=== PATIENT | male | born 1960 | race Two or more races ===

== ENCOUNTER 2017-06-02 10:10 | Emergency (ER) | payer BC, OTHER ==
--- NOTE | 2017-06-02 11:44 | EDM.PDOC ---
ED HPI GENERAL MEDICAL PROBLEM - General Chief Complaint: Chest Pain Stated Complaint: CHEST PAIN Time Seen by Provider: 06/02/17 10:38 Source of Information: Reports: Patient, RN Notes Reviewed History Limitations: Reports: No Limitations - History of Present Illness INITIAL COMMENTS - FREE TEXT/NARRATIVE: The patient states that he developed retrosternal chest pain this past Saturday night, 05/31/2017. It is a tightness in character. It is a pain, not a discomfort. It has been coming and going, with exertion, but made worse if he sits. It does not radiate. He has associated dyspnea, but no nausea, diaphoresis , or sense of impending doom. He is asymptomatic at this time, although reports that he had the pain while he was getting the ECG here in the ED. He has not tried any treatments or home remedies. No prior similar symptoms. The patient's PCP is Dr. Luis Muñoz. He states that his last general physical exam was about 2 years ago. He has not previously undergone a cardiac stress test. Chest Pain Score (Numeric/FACES): 5 - Related Data Allergies Allergy/AdvReac Type Severity Reaction Status Date / Time No Known Allergies Allergy Verified 06/02/17 10:17 Home Meds: Home Meds . [No Known Home Meds] 06/02/17 [History] Past Medical History Endocrine/Metabolic History: Reports: Obesity/BMI 30+ - Past Surgical History HEENT Surgical History: Reports: LASIK (bilateral), Oral Surgery (Dental implants) GI Surgical History: Reports: Colonoscopy Musculoskeletal Surgical History: Reports: Shoulder Surgery (bilateral arthroscopic rotator cuff repair) Social & Family History - Tobacco Use Smoking Status *Q: Former Smoker Years of Tobacco use: 26 Packs/Tins Daily: 0.2 Month Tobacco Last Used: Quit October 2016 - Alcohol Use Alcohol Use History: Yes Alcohol Use Frequency: Socially - Recreational Drug Use Recreational Drug Use: No - Living Situation & Occupation Living situation: Reports: , with Spouse 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) ED ROS GENERAL - Review of Systems Review Of Systems: See Below Constitutional: Reports: No Symptoms HEENT: Reports: No Symptoms Respiratory: Reports: No Symptoms Cardiovascular: Reports: No Symptoms Endocrine: Reports: No Symptoms GI/Abdominal: Reports: No Symptoms : Reports: No Symptoms Musculoskeletal: Reports: No Symptoms Skin: Reports: No Symptoms Neurological: Reports: No Symptoms Psychiatric: Reports: No Symptoms Hematologic/Lymphatic: Reports: No Symptoms Immunologic: Reports: No Symptoms ED EXAM, GENERAL - Physical Exam Exam: See Below Exam Limited By: No Limitations General Appearance: Alert, WD/WN, No Apparent Distress Eye Exam: Bilateral Eye: Normal Inspection Ears: Normal External Exam, Hearing Grossly Normal Nose: Normal Inspection, No Blood Throat/Mouth: Normal Inspection, Normal Lips, Normal Voice, No Airway Compromise Head: Atraumatic, Normocephalic Neck: Normal Inspection, Full Range of Motion Respiratory/Chest: No Respiratory Distress, Lungs Clear, Normal Breath Sounds, No Accessory Muscle Use, Chest Non-Tender Cardiovascular: Normal Peripheral Pulses, Regular Rate, Rhythm, No Gallop, No JVD, No Murmur, No Rub Peripheral Pulses: 4+: Radial (L), Radial (R) GI/Abdominal: Normal Bowel Sounds, Soft, Non-Tender, No Organomegaly, No Distention, No Abnormal Bruit, No Mass, Other (Obese) (Male) Exam: Deferred Rectal (Males) Exam: Deferred Back Exam: Normal Inspection, Full Range of Motion. No: CVA Tenderness (L), CVA Tenderness (R) Extremities: Normal Inspection, Normal Range of Motion, No Pedal Edema, Normal Capillary Refill Neurological: Alert, Oriented, Normal Cognition, No Motor/Sensory Deficits Psychiatric: Normal Affect Skin Exam: Warm, Dry, Intact, Normal Color, No Rash EKG INTERPRETATION EKG Date: 06/02/17 Time: 10:19 Rhythm: NSR Rate (Beats/Min): 70 Maynard: LAD-Left Maynard Deviation P-Wave: Present QRS: Normal ST-T: Normal QT: Normal Comparison: NA - No Prior EKG Course - Vital Signs Last Recorded V/S: Last Vital Signs Temp 36.4 C 06/02/17 10:17 Pulse 71 06/02/17 10:17 Resp 16 06/02/17 12:25 BP 131/96 H 06/02/17 12:25 Pulse Ox 94 L 06/02/17 12:25 - Orders/Labs/Meds Orders: Active Orders 24 hr Category Date Time Status EKG Documentation Completion [RC] STAT Care 06/02/17 10:40 Active Chest 2V [CR] Stat Exams 06/02/17 10:40 Taken Labs: Laboratory Tests 06/02/17 06/02/1717 Range/Units 10:23 10:23 10:23 WBC 6.90 (4.23-9.07) K/mm3 RBC 5.19 (4.63-6.08) M/mm3 Hgb 16.0 (13.7-17.5) gm/L Hct 45.7 (40.1-51.0) % MCV 88.1 (79.0-92.2) fl MCH 30.8 (25.7-32.2) pg MCHC 35.0 (32.2-35.5) g/dl RDW Std Deviation 41.2 (35.1-43.9) fL Plt Count 193 (163-337) K/mm3 MPV 8.5 L (9.4-12.3) fl Neutrophils % (Manual) 43 (40-60) % Band Neutrophils % 0 (0-10) % Lymphocytes % (Manual) 42 H (20-40) % Atypical Lymphs % 0 % Monocytes % (Manual) 11 H (2-10) % Eosinophils % (Manual) 4 (0.8-7.0) % Basophils % (Manual) 0 L (0.2-1.2) Platelet Estimate Adequate RBC Morph Comment Normal PT 11.0 (8.0-13.0) SECONDS INR 1.01 APTT 25 (22-36) SECONDS D-Dimer, Quantitative 0.21 (0.19-0.59) mg/L Sodium 142 (136-145) mEq/L Potassium 3.8 (3.5-5.1) mEq/L Chloride 106 (98-107) mEq/L Carbon Dioxide 25 (21-32) mEq/L Anion Gap 14.8 (5-15) BUN 13 (7-18) mg/dL Creatinine 1.1 (0.7-1.3) mg/dL Est Cr Clr Drug Dosing 62.79 mL/min Estimated GFR (MDRD) > 60 (>60) mL/min BUN/Creatinine Ratio 11.8 L (14-18) Glucose 107 H (74-106) mg/dL Calcium 8.9 (8.5-10.1) mg/dL Total Bilirubin 0.7 (0.2-1.0) mg/dL AST 63 H (15-37) U/L ALT 131 H (16-63) U/L Alkaline Phosphatase 98 (46-116) U/L Troponin I < 0.017 (0.00-0.056) ng/mL NT-Pro-B Natriuret Pep 18 (0-125) pg/mL Total Protein 7.4 (6.4-8.2) g/dl Albumin 4.0 (3.4-5.0) g/dl Globulin 3.4 gm/dL Albumin/Globulin Ratio 1.2 (1-2) - Re-Assessments/Exams Free Text/Narrative Re-Assessment/Exam: 06/02/17 10:58 Two-view chest radiograph appears to be grossly unremarkable. Poor inspiration , therefore suboptimal image. Cardiac silhouette is at the upper limits of normal. No pulmonary vascular congestion. No pleural effusions. No focal infiltrate. No pneumothorax. Formal read per the Radiologist pending. 06/02/17 12:06 Test results discussed with the patient and his . Today's workup is entirely unremarkable. Based on his history, I suspect that the patient was suffering from GERD. He is currently asymptomatic. I'm recommending that he start taking [id number] Pepcid or Zantac once or twice a day, but that if his symptoms persist, that he follow-up with his PCP, Dr. Muñoz, for referral for an EGD. Departure - Departure Time of Disposition: 12:07 Disposition: Home, Self-Care 01 Condition: Good Clinical Impression: Non-cardiac chest pain - Discharge Information Instructions: Nonspecific Chest Pain, [id number] Referrals: Luis Muñoz Jr, MD [Primary Care Provider] - Forms: ED Department Discharge Additional Instructions: You were seen in the emergency room for chest pain and shortness of breath since Saturday night, 05/31/2017. Workup in the ER included blood work, an ECG, and a chest x-ray. Your entire workup was normal, and does not explain the cause of your pain, however, based on your history, your pain is MOST LIKELY due to GERD. We recommend that you start taking [id number] Pepcid or Zantac ( famotidine or ranitidine) 1 tablet once or twice a day. If this does not help your symptoms, we recommend that you follow-up with your PCP, Dr. Luis Muñoz, to arrange for an EGD (scope of the stomach). If any other problems, please do not hesitate to return to the ER. - My Orders Last 24 Hours: My Active Orders 06/02/17 10:40 EKG Documentation Completion [RC] STAT Chest 2V [CR] Stat - Assessment/Plan Last 24 Hours: My Active Orders 06/02/17 10:40 EKG Documentation Completion [RC] STAT Chest 2V [CR] Stat
--- NOTE | 2017-06-03 07:16 | CR ---
Chest: Two views of the chest were obtained. Comparison: No prior study. Heart size is normal. Tortuous thoracic aorta is seen. Slight bibasilar atelectasis is incidentally noted. Lungs are clear with no acute infiltrates. Previous right shoulder surgery is noted. Impression: 1. Incidental findings. Nothing acute is seen. Diagnostic code #2
== END 2017-06-02 12:27 | disposition home or self-care (01) ==
LOC: JD.ED 10:10
DX: R07.89 Other chest pain (principal); Z87.891 Personal history of nicotine dependence
CPT/HCPCS: 36415; 71020; 71020-26; 80053; 83880; 84484; 85025; 85379; 85610; 85730; 93005; 93010; 99284-25; 99285-25